=== PATIENT | female | born 2000 | race Caucasian/White ===

== ENCOUNTER 2018-02-16 04:28 | Inpatient (IN) | payer OTHER ==
[2018-02-16] MEDS ORDERED: OXYTOCIN/LR 20 UNIT/1,000 ML BAG IV ONE (05:42)
[2018-02-16] MEDS ORDERED: MEPERIDINE HCL 25 MG/0.5 ML IV PRN (05:45)
[2018-02-16] MEDS ORDERED: PROMETHAZINE 25 MG/ML VIAL IM PRN (05:45)
[2018-02-16] MEDS ORDERED: Ringers Lactate 1,000 ML IV PRN (05:45)
[2018-02-16] MEDS ORDERED: BUTORPHANOL 1 MG/ML INJ IV PRN (05:45)
[2018-02-16] MEDS ORDERED: METHYLERGONOVINE 0.2MG/ML AMP IM PRN (05:45)
[2018-02-16] MEDS ORDERED: CARBOPROST TROME 250 MCG/ML IM PRN (05:45)
[2018-02-16] MEDS ORDERED: Ringers Lactate 1,000 ML IV SCH (06:00)
[2018-02-16] MEDS ORDERED: OXYTOCIN/LR 20 UNIT/1,000 ML BAG IV SCH ×2 (06:00→11:00)
[2018-02-16 06:45] VITALS: BMI 30.9
[2018-02-16 07:22] LABS: RPR Titer ND
[2018-02-16 07:24] LABS: Absolute Lymphocytes (CBC) 1.7 K/uL (0.7-4.9); Absolute Monocytes 1.1 K/uL (0.1-1.3); Absolute Neutrophil 8.4 K/uL (1.8-8.0); Basophils % 0.3 % (0-1.3); Eosinophils % 3.5 % (0-4.4); Hematocrit 33.1 % (36.0-45.0); Lymphocytes % 14.4 % (15.3-44.8); MCH 26.3 pg (27.0-35.0); MCV 81.4 fL (80-100); MPV 9.7 fL (7.6-11.3); Monocytes % 9.5 % (3.3-12.3); RBC Red Blood Cell Count 4.06 M/uL (3.86-4.86)
[2018-02-16] MEDS ORDERED: FENTANYL CITR 100 MCG/2 ML IV ONE (07:34)
[2018-02-16] MEDS ORDERED: ROPIVACAINE HCL 100 ML IV PRN (07:34)
[2018-02-16] MEDS ORDERED: ROPIVACAINE HCL 0.2% 20ML AMP SQ ONE (07:35)
[2018-02-16] MEDS ORDERED: LIDOCAINE 2% INJ, 20 mL 0 ML ONE (10:17)
[2018-02-16] MEDS ORDERED: DIPHENHYDRAMINE 25 MG TAB/CAP PO PRN (10:23)
[2018-02-16] MEDS ORDERED: IBUPROFEN 200 MG TAB PO PRN (10:23)
[2018-02-16] MEDS ORDERED: BISACODYL 10 MG RECTAL SUPP RECT PRN (10:23)
[2018-02-16] MEDS ORDERED: ACETAMINOPHEN 500 MG TAB PO PRN (10:23)
[2018-02-16] MEDS ORDERED: DOCUSATE NA/SENNA CONC 1 TAB PO PRN (10:23)
[2018-02-16] MEDS ORDERED: Oxycodone HCl/Acetaminophen 1 TAB TAB PO PRN ×2 (10:23)
--- NOTE | 2018-02-16 11:01 | PREOPHP ---
Date of Admission: 02/16/2018 A 17-year-old, primigravida, patient of Dr. Roman. Has followed antepartum without apparent complicat ions. Rh negative, immune to Rubella. Negative beta strep screen. Admitted to Labor and Delivery w ith rupture of membranes, 2 cm, irregular contractions. She has been started on Pitocin. Has now pr ogressed to 5 cm, 90% to 100% effaced, 0 station. Baby looks good on the monitor. Admission talk gi fercho. The patient will either get IV analgesics or possibly will get an epidural. Full admission and labor talk given. Anticipate delivery relatively soon. PAUL/BRAYDEN Voice ID: [id number]
[2018-02-16] MEDS ORDERED: Rho(D) IG (HUMAN) 300 MCG SYR IM ONE (11:29)
--- NOTE | 2018-02-16 11:34 | OP ---
Surgeon: Harjit Galindo MD This is a 17-year-old, primigravida, 39 weeks and 2 days. Came in with spontaneous rupture of membra chip, irregular contractions. The patient of Dr. Holland, followed antepartum without complications. Rh negative, immune to Rubella. Negative beta strep screen. Had Stadol 1 mg IV, at 6 cm, requested epidural anesthesia. This was placed and gave good effect during remainder of labor and delivery. S econd stage of approximately 30 to possibly 45 minutes. Spontaneous vaginal delivery of an estimated 7-pound male infant. Nuchal cord very loosely x2, Apgars 9 and 9. Placenta delivered. Schultze in spected and noted to be intact and normal. Less than 300 cc blood loss. Four stitches of 2-0 chromi c just inside the introitus on the patient's left for a first-degree laceration. Final Diagnoses: Term intrauterine 39 weeks 2 days, vaginal delivery, epidural anesthesia. Rh negative. RhoGAM pending. PAUL/BRAYDEN Voice ID: [id number] Report ID: [id number]
[2018-02-16 21:07] LABS: Urine Appearance CLEAR; Urine Bilirubin NEGATIVE (NEG); Urine Blood NEGATIVE (NEG); Urine Color YELLOW; Urine Glucose NEGATIVE (NEG); Urine Protein NEGATIVE (NEG); Urine Urobilinogen 0.2 mg/dL (0.2-1.0); Urine pH 7.5 (5.0-7.0)
[2018-02-16 21:25] LABS: Urine Bacteria <20 /HPF (<20); Urine Culture Reflex Order NOT NEEDED; Urine RBC <5 /HPF (NONE SEEN)
[2018-02-16 21:37] LABS: RPR (Rapid Plasma Reagin) NON-REACT (NON-REACT)
--- NOTE | 2018-02-17 11:56 | P.DS ---
Admission Date: 02/16/18 Discharge Date: 02/17/18 Disposition: ROUTINE DISCHARGE Comment: Rounding with discharge summary Discharge Condition: GOOD Reason for Admission: Labor pains Brief History of Present Illness: Pt was admitted for spontaneous onset of labor and delivered by on-call Dr. Galindo. See operative report for details. Hospital Course: 17 y.o. admitted in spontaneous labor, delivered by on-call physician Dr. Galindo. She had a vaginal delivery. She is infant and is doing well on PPD #1. Lohea is described as normal. Pain is well controlled with motrin. Stable for d/c home today Vital Signs/Physical Exam: Temp Pulse Resp BP Pulse Ox 97.2 F 115 H 20 127/73 02/17/18 08:00 02/17/18 08:00 02/17/18 08:00 02/17/18 08:00 General: Alert, In no apparent distress, Oriented x3 Respiratory: Other (Normal effort) Cardiovascular: Normal pulses Gastrointestinal: Soft and benign, No tenderness, Other (Uterus firm and at the level of umbilicus) Musculoskeletal: No swelling, No erythema, No tenderness Integumentary: No rashes, No breakdown Neurological: Normal speech, Normal strength at 5/5 x4 extr Laboratory Data at Discharge: WBC 11.6 K/uL (4.3-10.9) H 02/16/18 05:25 Hgb 10.7 g/dL (12.0-15.0) L 02/16/18 05:25 Hct 33.1 % (36.0-45.0) L 02/16/18 05:25 Plt Count 294 K/uL (152-406) 02/16/18 05:25 Home Medications: Vit/Iron Fumarate/FA [ Tablet] 1 each PO DAILY 02/16/18 Ibuprofen 800 mg PO Q8H PRN #30 tablet 02/17/18 New Medications: Ibuprofen 800 mg PO Q8H PRN #30 tablet PRN Reason: Abdominal Cramps Patient Discharge Instructions: Complete pelvic rest. Notify doctor of heavy bleeding, pain, fever/chills, or signs of infection Diet: Regular Activity: Ad inder Followup: Roxie Roman MD [ACTIVE - CAN ADMIT] - (Follow up with Dr. Roman in 6 weeks. Call and make apoointment. )
[2018-02-17 12:24] LABS: Hematocrit 29.2 % (36.0-45.0); MCH 26.5 pg (27.0-35.0); MCV 81.5 fL (80-100); MPV 9.2 fL (7.6-11.3); RBC Red Blood Cell Count 3.58 M/uL (3.86-4.86)
[2018-02-17 12:57] VITALS: BP 124/74; TEMP 97.7
[2018-02-19 03:55] LABS: HBsAG Nonreactive (Nonreactive)
== END 2018-02-17 14:15 | disposition home or self-care (01) | DRG 775 ==
LOC: L&D 04:28 → 2ND-WC 04:49
PROVIDERS: ADMIT Obstetrics & Gynecology; ATTEND Obstetrics & Gynecology
PROC: 10E0XZZ Delivery of Products of Conception, External Approach (ICD-10-PCS; principal; 2018-02-16)
PROC: 0HQ9XZZ Repair Perineum Skin, External Approach (ICD-10-PCS; 2018-02-16)
PROC: 3E0234Z Introduction of Serum, Toxoid and Vaccine into Muscle, Percutaneous Approach (ICD-10-PCS; 2018-02-16)
DX: O70.0 First degree perineal laceration during delivery (principal); O69.81X0 Labor and delivery complicated by cord around neck, without compression, not applicable or unspecified; O26.893 Other specified pregnancy related conditions, third trimester; Z3A.39 39 weeks gestation of pregnancy; Z67.31 Type AB blood, Rh negative; Z37.0 Single live birth
CPT/HCPCS: 36415; 81001; 85025; 85027; 85461; 86592; 86850; 86901; 87340; J0595; J2175; J2210; J2590; J2790; J2795; J3010

== ENCOUNTER 2018-08-13 13:19 | Emergency (ER) | payer OTHER ==
[2018-08-13] MEDS ORDERED: NA CHLORIDE 0.9% 1,000 ML ONE (15:27)
[2018-08-13 15:55] LABS: ALT/SGPT 21 U/L (12-78); AST/SGOT 17 U/L (15-37); Albumin 4.2 g/dL (3.4-5.0); Alkaline Phosphatase 103 U/L (45-117); BUN Blood Urea Nitrogen 13 mg/dL (7-18); Bicarbonate 24 mmol/L (21-32); Bilirubin Direct < 0.1 mg/dL (0-0.2); Bilirubin Total 0.2 mg/dL (0.2-1.0); Glucose Level 84 mg/dL (74-106); Lipase 167 U/L (73-393); Protein, Total 8.1 g/dL (6.4-8.2); Sodium Level 142 mmol/L (136-145)
[2018-08-13 16:01] LABS: Absolute Lymphocytes (CBC) 1.6 K/uL (0.7-4.9); Absolute Monocytes 0.5 K/uL (0.1-1.3); Absolute Neutrophil 4.5 K/uL (1.8-8.0); Basophils % 0.8 % (0-1.3); Eosinophils % 5.9 % (0-4.4); Hematocrit 43.9 % (36.0-45.0); Lymphocytes % 22.4 % (15.3-44.8); MPV 8.9 fL (7.6-11.3); Monocytes % 7.3 % (3.3-12.3); RBC Red Blood Cell Count 5.39 M/uL (3.86-4.86)
--- NOTE | 2018-08-13 16:44 | RAD REPORT ---
EXAM DESCRIPTION: CTAbdomen Pelvis W Contrast - 08/13/2018 4:37 pm CLINICAL HISTORY: Abdominal pain. iv only;Abd pain COMPARISON: No comparisons TECHNIQUE: Biphasic CT imaging of the abdomen and pelvis was performed with 100 ml non-ionic IV cont rast. All CT scans are performed using dose optimization technique as appropriate and may include automated exposure control or mA/KV adjustment according to patient size. FINDINGS: The lung bases are clear. The liver, spleen, pancreas, adrenal glands and kidneys are within normal limits. No bowel obstruction, free air, free fluid or abscess. The colon appears thickened particularly the t ransverse and descending colon compatible with colitis. The appendix is normal. No evidence of signi ficant lymphadenopathy. No suspicious bony findings. IMPRESSION: Mild colitis is suspected involving the transverse and descending colon.
--- NOTE | 2018-08-13 17:19 | EDPHYS ---
Physician Documentation [facility] Name: Ajay Cole Age: 18 yrs Sex: Female : 2000 Arrival Date: 08/13/2018 Time: 13:21 Bed 26 Private MD: None, None ED Physician Marixa Robertson HPI: 08/13 16:04 This 18 yrs old Female presents to ER via Ambulatory with complaints of jr8 Abdominal Pain. 16:04 The patient presents with abdominal pain in the lower abdomen. Onset: The jr8 symptoms/episode began/occurred acutely, 1 week(s) ago, and became persistent. The symptoms do not radiate. Associated signs and symptoms: Pertinent positives: diarrhea. The symptoms are described as crampy. Modifying factors: The symptoms are alleviated by nothing, the symptoms are aggravated by food. Severity of pain: At its worst the pain was mild in the emergency department the pain is unchanged. The patient has not experienced similar symptoms in the past. The patient has not recently seen a physician. denies recent antibiotic use or recent travel outside of country . Historical: - Allergies: 13:23 No Known Allergies; sv - PMHx: 13:23 None; sv - PSHx: 13:23 None; sv - Immunization history:: Adult Immunizations up to date. - Social history:: Smoking status: Patient/guardian denies using tobacco. - Ebola Screening: : No symptoms or risks identified at this time. ROS: 16:04 Eyes: Negative for injury, pain, redness, and discharge, ENT: Negative for injury, jr8 pain, and discharge, Neck: Negative for injury, pain, and swelling, Cardiovascular: Negative for chest pain, palpitations, and edema, Respiratory: Negative for shortness of breath, cough, wheezing, and pleuritic chest pain, Back: Negative for injury and pain, MS/Extremity: Negative for injury and deformity, Skin: Negative for injury, rash, and discoloration, Neuro: Negative for headache, weakness, numbness, tingling, and seizure. 16:04 Abdomen/GI: Positive for diarrhea, abdominal cramps, Negative for nausea and vomiting, hematemesis, black/tarry stool, rectal pain, rectal bleeding, bowel incontinence, flatulence. Exam: 16:04 Eyes: Pupils equal round and reactive to light, extra-ocular motions intact. Lids and jr8 lashes normal. Conjunctiva and sclera are non-icteric and not injected. Cornea within normal limits. Periorbital areas with no swelling, redness, or edema. ENT: Nares patent. No nasal discharge, no septal abnormalities noted. Tympanic membranes are normal and external auditory canals are clear. Oropharynx with no redness, swelling, or masses, exudates, or evidence of obstruction, uvula midline. Mucous membranes moist. Neck: Trachea midline, no thyromegaly or masses palpated, and no cervical lymphadenopathy. Supple, full range of motion without nuchal rigidity, or vertebral point tenderness. No Meningismus. Cardiovascular: Regular rate and rhythm with a normal S1 and S2. No gallops, murmurs, or rubs. Normal PMI, no JVD. No pulse deficits. Respiratory: Lungs have equal breath sounds bilaterally, clear to auscultation and percussion. No rales, rhonchi or wheezes noted. No increased work of breathing, no retractions or nasal flaring. Back: No spinal tenderness. No costovertebral tenderness. Full range of motion. Skin: Warm, dry with normal turgor. Normal color with no rashes, no lesions, and no evidence of cellulitis. MS/ Extremity: Pulses equal, no cyanosis. Neurovascular intact. Full, normal range of motion. Neuro: Awake and alert, GCS 15, oriented to person, place, time, and situation. Cranial nerves II-XII grossly intact. Motor strength 5/5 in all extremities. Sensory grossly intact. Cerebellar exam normal. Normal gait. 16:04 Abdomen/GI: Inspection: abdomen appears normal, Bowel sounds: active, all quadrants, Palpation: soft, in all quadrants, mild abdominal tenderness, in the suprapubic area, right lower quadrant and left lower quadrant, mass, is not appreciated, rebound tenderness, is not appreciated, voluntary guarding, is not appreciated, involuntary guarding, is not appreciated, no appreciated organomegaly, Indicators: McBurney's point is not tender, San's sign is negative, Rovsing's sign is negative, Obturator sign is negative, Psoas sign is negative, Liver: tenderness, is not appreciated. Vital Signs: 13:23 BP 124 / 85; Pulse 108; Resp 18; Temp 97.8; Pulse Ox 100% ; Weight 72.57 kg; Height 5 sv ft. 3 in. (160.02 cm); Pain 5/10; 14:20 BP 116 / 65; Pulse 96; Resp 16; Temp 98.4; Pulse Ox 100% ; lt1 15:32 BP 119 / 81; Pulse 98; Resp 17; Pulse Ox 100% on R/A; tw2 16:00 BP 102 / 61; Pulse 95; Resp 18 S; Pulse Ox 97% on R/A; rv 16:39 BP 98 / 61; Pulse 100; Resp 18 S; Pulse Ox 100% on R/A; rv 17:44 BP 104 / 68; Pulse 64; Resp 18; Pulse Ox 100% on R/A; rv 13:23 Body Mass Index 28.34 (72.57 kg, 160.02 cm) sv MDM: 15:02 Patient medically screened. jr8 17:17 Differential diagnosis: diverticulitis, Irritable bowel syndrome, non-specific abd jr8 pain, Ovarian Torsion, Pyelonephritis, Ureterolithiasis, urinary tract infection, colitis. Data reviewed: vital signs, nurses notes, lab test result(s), radiologic studies, CT scan. Data interpreted: Pulse oximetry: on room air is 100 %. Interpretation: normal. Counseling: I had a detailed discussion with the patient and/or guardian regarding: the historical points, exam findings, and any diagnostic results supporting the discharge/admit diagnosis, lab results, radiology results, the need for outpatient follow up, a family practitioner, to return to the emergency department if symptoms worsen or persist or if there are any questions or concerns that arise at home. Response to treatment: the patient's symptoms have markedly improved after treatment. 08/13 15:11 Order name: Basic Metabolic Panel; Complete Time: 16:08/13 15:11 Order name: CBC with Diff; Complete Time: 16:32 08/13 15:11 Order name: Creatinine for Radiology; Complete Time: 16:05 08/13 15:11 Order name: Hepatic Function; Complete Time: 16:08/13 15:11 Order name: Lipase; Complete Time: 16:08/13 16:39 Order name: Urine Dipstick--Ancillary (enter results) bd 08/13 15:11 Order name: IV Saline Lock; Complete Time: 15:26 08/13 15:11 Order name: Labs collected and sent; Complete Time: 15:26 8 08/13 15:11 Order name: Urine Dipstick-Ancillary (obtain specimen); Complete Time: 16:45 8 08/13 16:06 Order name: CT Abd/Pelvis - W/Contrast; Complete Time: 17:15 jr8 08/13 16:39 Order name: Urine --Ancillary (enter results) bd 08/13 15:11 Order name: Urine Test (obtain specimen); Complete Time: 16:44 jr8 Administered Medications: 15:20 Drug: NS 0.9% 1000 ml Route: IV; Rate: 1000 ml; Site: right antecubital; tw2 17:43 Follow up: IV Status: Completed infusion rv 17:43 Drug: Cipro 500 mg Route: PO; rv 17:43 Follow up: Response: Medication administered at discharge. rv 17:43 Drug: Flagyl 500 mg Route: PO; rv 17:43 Follow up: Response: Medication administered at discharge. rv Disposition: 18:40 Co-signature as Attending Physician, Marixa Robertson MD. ma Disposition: 08/13/18 17:18 Discharged to Home. Impression: Colitis, Diarrhea, unspecified. - Condition is Stable. - Discharge Instructions: Diarrhea, Adult. - Prescriptions for Cipro 500 mg Oral Tablet - take 1 tablet by ORAL route every 12 hours for 10 days; 20 tablet. Flagyl 500 mg Oral Tablet - take 1 tablet by ORAL route every 6 hours for 10 days; 40 tablet. promethazine 25 mg Oral Tablet - take 1 tablet by ORAL route every 6 hours As needed; 20 tablet. - Medication Reconciliation Form, Thank You Letter, Antibiotic Education, Prescription Opioid Use, Work release form form. - Follow up: Private Physician; When: 5 - 6 days; Reason: Recheck today's complaints, Continuance of care, Re-evaluation by your physician. - Problem is new. - Symptoms have improved. Signatures: Dispatcher [employer] Elizabeth Chou, RN Ab Carrion PA PA jr8 Mary Anne Riley RN RN tw2 Marixa Robertson MD MD or2 Ike Juarez RN RN rv Corrections: (The following items were deleted from the chart) 17:45 17:18 08/13/2018 17:18 Discharged to Home. Impression: Colitis; Diarrhea, unspecified. rv Condition is Stable. Forms are Medication Reconciliation Form, Thank You Letter, Antibiotic Education, Prescription Opioid Use. Follow up: Private Physician; When: 5 - 6 days; Reason: Recheck today's complaints, Continuance of care, Re-evaluation by your physician. Problem is new. Symptoms have improved. jr8
--- NOTE | 2018-08-13 17:19 | ER ---
Nurse's Notes [facility] Name: Ajay Cole Age: 18 yrs Sex: Female : 2000 Arrival Date: 08/13/2018 Time: 13:21 Bed 26 Private MD: None, None Diagnosis: Colitis;Diarrhea, unspecified Presentation: 08/13 13:22 Presenting complaint: Patient states: diffuse abd pain and diarrhea x 1 week. sv Transition of care: patient was not received from another setting of care. Onset of symptoms was August 06, 2018. Care prior to arrival: None. 13:22 Method Of Arrival: Ambulatory sv 13:22 Acuity: SUKH 3 sv 14:06 Risk Assessment: Do you want to hurt yourself or someone else? Patient reports no tw2 desire to harm self or others. Initial Sepsis Screen: Does the patient meet any 2 criteria? No. Patient's initial sepsis screen is negative. Does the patient have a suspected source of infection? No. Patient's initial sepsis screen is negative. Triage Assessment: 13:24 General: Appears in no apparent distress. uncomfortable, Behavior is calm, cooperative, sv appropriate for age. Pain: Complains of pain in abdomen Pain currently is 5 out of 10 on a pain scale. Neuro: Level of Consciousness is awake, alert, obeys commands, Oriented to person, place, time, situation, Gait is steady. Respiratory: Respiratory effort is even, unlabored, Respiratory pattern is regular, symmetrical. GI: Reports lower abdominal pain, upper abdominal pain, diarrhea. Historical: - Allergies: 13:23 No Known Allergies; sv - PMHx: 13:23 None; sv - PSHx: 13:23 None; sv - Immunization history:: Adult Immunizations up to date. - Social history:: Smoking status: Patient/guardian denies using tobacco. - Ebola Screening: : No symptoms or risks identified at this time. Screenin:07 Abuse screen: Denies threats or abuse. Nutritional screening: No deficits noted. tw2 Tuberculosis screening: No symptoms or risk factors identified. Fall Risk None identified. Assessment: 14:15 General: Appears in no apparent distress. Behavior is calm, cooperative, appropriate tw2 for age. Pain: Complains of pain in abdomen. Neuro: Level of Consciousness is awake, alert, obeys commands, Oriented to person, place, time, situation. Cardiovascular: Heart tones S1 S2 Patient's skin is warm and dry. Respiratory: Airway is patent Respiratory effort is even, unlabored, Respiratory pattern is regular, symmetrical, Breath sounds are clear bilaterally. GI: Reports lower abdominal pain, upper abdominal pain, diarrhea. : No signs and/or symptoms were reported regarding the genitourinary system. EENT: No signs and/or symptoms were reported regarding the EENT system. Derm: No signs and/or symptoms reported regarding the dermatologic system. Musculoskeletal: Range of motion: intact in all extremities. 14:15 GI: Abdomen is flat, Bowel sounds present X 4 quads. Abd is soft X 4 quads Reports. tw2 15:32 Reassessment: Patient appears in no apparent distress at this time. Patient and/or tw2 family updated on plan of care and expected duration. Pain level reassessed. Patient is alert, oriented x 3, equal unlabored respirations, skin warm/dry/pink. Vital Signs: 13:23 BP 124 / 85; Pulse 108; Resp 18; Temp 97.8; Pulse Ox 100% ; Weight 72.57 kg; Height 5 sv ft. 3 in. (160.02 cm); Pain 5/10; 14:20 BP 116 / 65; Pulse 96; Resp 16; Temp 98.4; Pulse Ox 100% ; lt1 15:32 BP 119 / 81; Pulse 98; Resp 17; Pulse Ox 100% on R/A; tw2 16:00 BP 102 / 61; Pulse 95; Resp 18 S; Pulse Ox 97% on R/A; rv 16:39 BP 98 / 61; Pulse 100; Resp 18 S; Pulse Ox 100% on R/A; rv 17:44 BP 104 / 68; Pulse 64; Resp 18; Pulse Ox 100% on R/A; rv 13:23 Body Mass Index 28.34 (72.57 kg, 160.02 cm) sv ED Course: 13:21 Patient arrived in ED. sb2 13:22 None, None is Private Physician. sb2 13:23 Triage completed. sv 13:24 Arm band placed on. sv 14:06 Mary Anne Riley, TYRONE is Primary Nurse. tw2 14:07 Bed in low position. Call light in reach. Pulse ox on. NIBP on. tw2 14:56 Ab Araujo PA is PHCP. jr8 14:56 Marixa Robertson MD is Attending Physician. jr8 16:[address] via wheelchair. sj 16:16 CT Abd/Pelvis - W/Contrast Sent. lt1 16:30 CT completed. Patient tolerated procedure well. Patient moved back from CT. vm2 16:37 CT Abd/Pelvis - W/Contrast In Process Unspecified. EDMS 17:44 No provider procedures requiring assistance completed. IV discontinued, bleeding rv controlled, No redness/swelling at site. Pressure dressing applied. Administered Medications: 15:20 Drug: NS 0.9% 1000 ml Route: IV; Rate: 1000 ml; Site: right antecubital; tw2 17:43 Follow up: IV Status: Completed infusion rv 17:43 Drug: Cipro 500 mg Route: PO; rv 17:43 Follow up: Response: Medication administered at discharge. rv 17:43 Drug: Flagyl 500 mg Route: PO; rv 17:43 Follow up: Response: Medication administered at discharge. rv Outcome: 17:18 Discharge ordered by MD. jr8 17:45 Discharged to home ambulatory. rv 17:45 Condition: good 17:45 Discharge instructions given to patient, Instructed on discharge instructions, follow up and referral plans. medication usage, Demonstrated understanding of instructions, follow-up care, medications, Prescriptions given X 3. 17:45 Patient left the ED. rv Signatures: Dispatcher [employer] EDMS Elizabeth Simmons, RN RN Bhavna Cantor Josh, PA PA jr8 Mary Anne Riley RN RN tw2 Lyssa Knight 2 Tiarra Ash 2 Ike Juarez RN RN rv Lenora Vogt lt1 Corrections: (The following items were deleted from the chart) 13:24 13:23 Resp 18bpm; Pulse Ox 100%; Temp 97.8F; 72.57 kg; Height 5 ft. 3 in.; BMI: 28.3; sv Pain 5/10; sv 15:32 14:15 GI: Abdomen is flat, Bowel sounds present X 4 quads. Abd is soft X 4 quads tw2 tw2
[2018-08-13] MEDS ORDERED: metroNIDAZOLE 500 MG TABLET ONE (17:40)
[2018-08-13] MEDS ORDERED: CIPROFLOXACIN HCL 500 MG TAB ONE (17:41)
[2018-08-13 17:53] VITALS: TEMP 98.4
[2018-08-13 17:57] VITALS: O2SAT 100
[2018-08-13 17:59] VITALS: BP 104/68
[2018-08-13 18:09] LABS: Urine Blood NEGATIVE (NEG); Urine Glucose NEGATIVE (NEG); Urine Protein NEGATIVE (NEG); Urine Specific Gravity 1.025 (1.005-1.030)
== END 2018-08-13 17:45 | disposition home or self-care (01) ==
LOC: ER 13:19
DX: K52.9 Noninfective gastroenteritis and colitis, unspecified (principal); R19.7 Diarrhea, unspecified
CPT/HCPCS: 36415; 74177; 80048; 80076; 81003; 81025; 83690; 85025; J7030; Q9967

== ENCOUNTER 2019-12-30 12:41 | Emergency (ER) | payer OTHER, SELFPAY ==
[2019-12-30 14:45] LABS: Basophils % 0.3 % (0-1.3); Hematocrit 48.1 % (36.0-45.0); Lymphocytes % 11.2 % (15.3-44.8); MPV 8.6 fL (7.6-11.3)
[2019-12-30] MEDS ORDERED: ONDANSETRON 4 MG/2 ML VIAL ONE (14:45)
[2019-12-30] MEDS ORDERED: DICYCLOMINE HCL 10 MG CAP ONE (14:45)
[2019-12-30] MEDS ORDERED: NA CHLORIDE 0.9% 1,000 ML ONE (14:45)
[2019-12-30 14:58] LABS: ALT/SGPT 26 U/L (12-78); AST/SGOT 18 U/L (15-37); Albumin 4.4 g/dL (3.4-5.0); Alkaline Phosphatase 128 U/L (45-117); BUN Blood Urea Nitrogen 8 mg/dL (7-18); Bicarbonate 26 mmol/L (21-32); Bilirubin Direct < 0.1 mg/dL (0-0.2); Bilirubin Total 0.2 mg/dL (0.2-1.0); Glucose Level 109 mg/dL (74-106); Lipase 102 U/L (73-393); Potassium 4.2 mmol/L (3.5-5.1); Protein, Total 8.5 g/dL (6.4-8.2); Sodium Level 138 mmol/L (136-145)
--- NOTE | 2019-12-30 15:56 | RAD REPORT ---
EXAM DESCRIPTION: CT - Abdomen Pelvis W Contrast - 12/30/2019 3:32 pm CLINICAL HISTORY: Abdominal pain COMPARISON: 2019 TECHNIQUE: Computed axial tomography of the abdomen pelvis was obtained. 100 cc Isovue-300 was admin istered intravenously. Oral contrast was not requested which limits evaluation of bowel. All CT scans are performed using dose optimization technique as appropriate and may include automated exposure control or mA/KV adjustment according to patient size. FINDINGS: The liver, spleen, pancreas, adrenal and kidneys appear unremarkable. There is no evidence of diverticulitis. Normal appendix IMPRESSION: No acute abnormality is displayed.
--- NOTE | 2019-12-30 16:22 | ER ---
Nurse's Notes [facility] Name: Ajay Cole Age: 19 yrs Sex: Female : 2000 Arrival Date: 12/30/2019 Time: 12:43 Bed 5 Private MD: Diagnosis: Diarrhea, unspecified;Nausea and vomiting Presentation: 12/29 12:49 Chief complaint: Patient states: abd cramping, N/V/D that began at 0500 this morning. ss Pt states, "I'm pretty sure I have food poisoning.". Coronavirus screen: Proceed with normal triage. Patient denies a cough. Patient denies shortness of breath or difficulty breathing. Patient denies measured and/or subjective temperature greater than 100.4F prior to today's visit. Patient denies travel on a cruise ship or to a country the [facility] currently lists as an affected area. Patient denies contact with known and/or suspected case of COVID-19. Ebola Screen: Patient denies exposure to infectious person. Patient denies travel to an Ebola-affected area in the 21 days before illness onset. Initial Sepsis Screen: Does the patient meet any 2 criteria? HR > 90 bpm. No. Patient's initial sepsis screen is negative. Does the patient have a suspected source of infection? No. Patient's initial sepsis screen is negative. Risk Assessment: Do you want to hurt yourself or someone else? Patient reports no desire to harm self or others. Onset of symptoms was December 30, 2019. 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 - Social history:: Smoking status: Patient denies any tobacco usage or history of. Screenin:15 Abuse screen: Denies threats or abuse. Nutritional screening: No deficits noted. aa5 Tuberculosis screening: No symptoms or risk factors identified. Fall Risk None identified. Assessment: 14:15 General: Appears comfortable, Behavior is calm, cooperative. Pain: Complains of pain in aa5 right lower quadrant and left lower quadrant Pain does not radiate. Pain currently is 8 out of 10 on a pain scale. Quality of pain is described as crampy, Is continuous. Neuro: Level of Consciousness is awake, alert, obeys commands, Oriented to person, place, time, situation. Cardiovascular: Heart tones S1 S2 present Rhythm is regular. Respiratory: Airway is patent Respiratory effort is even, unlabored, Respiratory pattern is regular, symmetrical. GI: Abdomen is round non-distended, Bowel sounds present X 4 quads. Abd is soft and non tender X 4 quads. Reports diarrhea, nausea, vomiting. : Denies burning with urination, inability to void. EENT: No signs and/or symptoms were reported regarding the EENT system. Derm: Skin is pink, warm \\T\\ dry. Musculoskeletal: Range of motion: intact in all extremities. 15:28 Reassessment: test negative, to bedside to administer Bentyl, pt currently in aa5 CT. . 15:40 Reassessment: Patient is alert, oriented x 3, equal unlabored respirations, skin aa5 warm/dry/pink. Patient states feeling better. 16:15 Reassessment: Patient is alert, oriented x 3, equal unlabored respirations, skin aa5 warm/dry/pink. Patient states feeling better. Awaiting disposition. . Vital Signs: 12:49 BP 116 / 92; Pulse 109; Resp 15; Temp 97.3(TE); Pulse Ox 98% on R/A; Weight 81.65 kg; Height 5 ft. 3 in. (160.02 cm); Pain 10/10; 15:30 BP 110 / 72; Pulse 94; Resp 18 S; Pulse Ox 97% on R/A; Pain 2/10; aa5 12:49 Body Mass Index 31.89 (81.65 kg, 160.02 cm) ED Course: 12:43 Patient arrived in ED. ag5 12:51 Triage completed. 12:51 Arm band placed on right wrist. 14:06 Jorge Santamaria PA is PHCP. cp 14:06 Jorge Gregorio MD is Attending Physician. cp 14:15 Patient has correct armband on for positive identification. Placed in gown. Bed in low aa5 position. Call light in reach. Side rails up X2. 14:15 Pulse ox on. NIBP on. aa5 14:18 Sarah Vigil, RN is Primary Nurse. aa5 14:40 Initial lab(s) drawn, by me, sent to lab. Inserted saline lock: 20 gauge in right aa5 antecubital area, using aseptic technique. Blood collected. 15:32 CT Abd/Pelvis - IV Contrast Only In Process Unspecified. EDCT 16:21 Ham Pelletier MD is Referral Physician. cp 16:56 No provider procedures requiring assistance completed. IV discontinued, intact, ss bleeding controlled, No redness/swelling at site. Pressure dressing applied. Administered Medications: 14:40 Drug: Zofran (Ondansetron) 4 mg Route: IVP; Site: right antecubital; aa5 16:55 Follow up: Response: No adverse reaction 14:40 Drug: NS 0.9% 1000 ml Route: IV; Rate: 1 bolus; Site: right antecubital; aa5 15:40 Follow up: IV Status: Completed infusion; IV Intake: 1000ml aa5 15:40 Drug: Bentyl 20 mg Route: PO; aa5 16:55 Follow up: Response: No adverse reaction ss 16:55 Drug: Cipro 500 mg Route: PO; ss 16:55 Follow up: Response: Medication administered at discharge. ss 16:55 Drug: metroNIDAZOLE 500 mg Route: PO; ss 16:55 Follow up: Response: Medication administered at discharge. ss Intake: 15:40 IV: 1000ml; Total: 1000ml. aa5 Outcome: 16:22 Discharge ordered by MD. cp 16:56 Discharged to home ambulatory, with friend. 16:56 Condition: good 16:56 Discharge instructions given to patient, family, Instructed on discharge instructions, follow up and referral plans. medication usage, Demonstrated understanding of instructions, follow-up care, medications, Prescriptions given X 4. 16:57 Patient left the ED. ss Signatures: Dispatcher [employer] [facility] Sarah Vigil RN RN aa5 Brenda De La Fuente RN RN ss Jorge Santamaria, PA PA Reed Toledo ag5
--- NOTE | 2019-12-30 16:23 | EDPHYS ---
Physician Documentation [facility] Name: Ajay Cole Age: 19 yrs Sex: Female : 2000 Arrival Date: 12/30/2019 Time: 12:43 Bed 5 Private MD: ED Physician Jorge Gregorio HPI: 12/29 14:30 This 19 yrs old Female presents to ER via Ambulatory with complaints of cp Abdominal Pain, Nausea/Vomiting. 14:30 The patient presents with abdominal pain. cp 14:30 Onset: The symptoms/episode began/occurred this morning. Associated signs and symptoms: cp Pertinent positives: nausea, vomiting, and diarrhea, blood in stools, Pertinent negatives: constipation, fever, vomiting blood. The symptoms are described as crampy. Patient reports eating out from [employer] yesterday and significant other with mild similar symptoms. 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 - Social history:: Smoking status: Patient denies any tobacco usage or history of. ROS: 14:35 Constitutional: Negative for body aches, chills, fever, poor PO intake. cp 14:35 Eyes: Negative for injury, pain, redness, and discharge. cp 14:35 ENT: Negative for ear pain, sore throat, difficulty swallowing, difficulty handling secretions. 14:35 Cardiovascular: Negative for chest pain. 14:35 Respiratory: Negative for cough, shortness of breath, wheezing. 14:35 Abdomen/GI: Positive for abdominal pain, nausea, vomiting, and diarrhea, abdominal cramps, blood in stool. 14:35 Neuro: Negative for altered mental status, headache, syncope, weakness. 14:35 All other systems are negative. Exam: 14:42 Constitutional: The patient appears in no acute distress, alert, awake, non-toxic, well cp developed, well nourished. 14:42 Head/Face: Normocephalic, atraumatic. cp 14:42 Eyes: Periorbital structures: appear normal, Conjunctiva: normal, no exudate, no injection, Sclera: no appreciated abnormality, Lids and lashes: appear normal, bilaterally. 14:42 ENT: External ear(s): are unremarkable, Nose: is normal, Mouth: Lips: moist, Oral mucosa: pink and intact, moist, Posterior pharynx: is normal, airway is patent, no erythema, no exudate. 14:42 Chest/axilla: Inspection: normal, Palpation: is normal, no crepitus, no tenderness. 14:42 Cardiovascular: Rate: tachycardic, Rhythm: regular. 14:42 Respiratory: the patient does not display signs of respiratory distress, Respirations: normal, no use of accessory muscles, no retractions, labored breathing, is not present, Breath sounds: are clear throughout, no decreased breath sounds. 14:42 Abdomen/GI: Inspection: abdomen appears normal, Bowel sounds: active, all quadrants, Palpation: soft, in all quadrants, mild abdominal tenderness, in the right lower quadrant and left lower quadrant, rebound tenderness, is not appreciated, voluntary guarding, is not appreciated, involuntary guarding, is not appreciated. 14:42 Back: pain, is absent, ROM is normal. Vital Signs: 12:49 BP 116 / 92; Pulse 109; Resp 15; Temp 97.3(TE); Pulse Ox 98% on R/A; Weight 81.65 kg; ss Height 5 ft. 3 in. (160.02 cm); Pain 10/10; 15:30 BP 110 / 72; Pulse 94; Resp 18 S; Pulse Ox 97% on R/A; Pain 2/10; aa5 12:49 Body Mass Index 31.89 (81.65 kg, 160.02 cm) ss MDM: 14:06 Patient medically screened. cp 16:20 Data reviewed: vital signs, nurses notes, lab test result(s), radiologic studies, CT cp scan. 16:20 Counseling: I had a detailed discussion with the patient and/or guardian regarding: the cp historical points, exam findings, and any diagnostic results supporting the discharge/admit diagnosis, lab results, radiology results, to return to the emergency department if symptoms worsen or persist or if there are any questions or concerns that arise at home. Response to treatment: the patient's symptoms have mildly improved after treatment, VSS. Patient appears non-toxic, H/H stable. No bowel movement noted in ED. Will discharge with oral antibiotics. 12/29 14:21 Order name: Basic Metabolic Panel; Complete Time: 15:04 cp 12/29 16:10 Interpretation: Normal except: GLUC 109; GFR 81. cp 12/29 14:21 Order name: CBC with Diff; Complete Time: 16:10 cp 12/29 16:10 Interpretation: Normal except: RBC 5.70; HGB 15.8; HCT 48.1; AMBER% 80.9; LYM% 11.2. cp 12/29 14:21 Order name: Hepatic Function; Complete Time: 15:04 cp 12/29 16:10 Interpretation: Normal except: ALK 128; TP 8.5; GLOB 4.1. cp 12/29 14:21 Order name: Lipase; Complete Time: 15:04 cp 12/29 15:25 Order name: Urine Dipstick--Ancillary (enter results) 12/29 15:25 Order name: Urine --Ancillary (enter results) 12/29 14:21 Order name: IV Saline Lock; Complete Time: 14:37 cp 12/29 14:21 Order name: Labs collected and sent; Complete Time: 14:37 cp 12/29 15:05 Order name: CT Abd/Pelvis - IV Contrast Only; Complete Time: 16:10 cp 12/29 14:21 Order name: Urine Dipstick-Ancillary (obtain specimen); Complete Time: 15:24 cp 12/29 14:21 Order name: Urine Test (obtain specimen); Complete Time: 15:23 cp Administered Medications: 14:40 Drug: Zofran (Ondansetron) 4 mg Route: IVP; Site: right antecubital; aa5 16:55 Follow up: Response: No adverse reaction ss 14:40 Drug: NS 0.9% 1000 ml Route: IV; Rate: 1 bolus; Site: right antecubital; aa5 15:40 Follow up: IV Status: Completed infusion; IV Intake: 1000ml aa5 15:40 Drug: Bentyl 20 mg Route: PO; aa5 16:55 Follow up: Response: No adverse reaction ss 16:55 Drug: Cipro 500 mg Route: PO; ss 16:55 Follow up: Response: Medication administered at discharge. ss 16:55 Drug: metroNIDAZOLE 500 mg Route: PO; ss 16:55 Follow up: Response: Medication administered at discharge. ss Disposition: 12/30 13:26 Co-signature as Attending Physician, Jorge Gregorio MD I agree with the assessment and [facility] of care. Disposition: 12/30/19 16:22 Discharged to Home. Impression: Diarrhea, unspecified, Nausea and vomiting. - Condition is Stable. - Discharge Instructions: Food Choices to Help Relieve Diarrhea, Adult, Diarrhea, Adult, Nausea and Vomiting, Adult. - Prescriptions for Bentyl 20 mg Oral Tablet - take 1 tablet by ORAL route every 6 hours As needed; 20 tablet. Zofran 4 mg Oral Tablet - take 1 tablet by ORAL route every 12 hours As needed; 20 tablet. Cipro 500 mg Oral Tablet - take 1 tablet by ORAL route every 12 hours for 7 days; 14 tablet. Metronidazole 500 mg Oral Tablet - take 1 tablet by ORAL route every 8 hours for 7 days; 21 tablet. - Medication Reconciliation Form, Thank You Letter, Antibiotic Education, Prescription Opioid Use form. - Follow up: Ham Pelletier MD; When: 2 - 3 days; Reason: Worsening of condition. - Problem is new. - Symptoms have improved. Signatures: Dispatcher [employer] [facility] Jorge Gregorio MD MD cha Calderon, Audri, RN RN aa5 Brenda De La Fuente RN RN ss Page, Corey, PA PA cp Corrections: (The following items were deleted from the chart) 12/29 16:22 16:22 12/30/2019 16:22 Discharged to Home. Impression: Diarrhea, unspecified. Condition cp is Stable. Forms are Medication Reconciliation Form, Thank You Letter, Antibiotic Education, Prescription Opioid Use. Follow up: Ham Pelletier; When: 2 - 3 days; Reason: Worsening of condition. Problem is new. Symptoms have improved. cp 16:57 16:22 12/30/2019 16:22 Discharged to Home. Impression: Diarrhea, unspecified; Nausea ss and vomiting. Condition is Stable. Forms are Medication Reconciliation Form, Thank You Letter, Antibiotic Education, Prescription Opioid Use. Follow up: Ham Pelletier; When: 2 - 3 days; Reason: Worsening of condition. Problem is new. Symptoms have improved. cp
[2019-12-30] MEDS ORDERED: CIPROFLOXACIN HCL 500 MG TAB ONE (16:59)
[2019-12-30] MEDS ORDERED: metroNIDAZOLE 500 MG TABLET ONE (16:59)
[2019-12-30 17:03] VITALS: BP 116/92; TEMP 97.3; O2SAT 98
[2019-12-30 17:04] LABS: Urine Blood NEGATIVE (NEG); Urine Glucose NEGATIVE (NEG); Urine Protein NEGATIVE (NEG)
== END 2019-12-30 16:57 | disposition home or self-care (01) ==
LOC: ER 12:41
DX: R19.7 Diarrhea, unspecified (principal)
CPT/HCPCS: 36415; 74177; 80048; 80076; 81003; 81025; 83690; 85025; 96361; 96374; 99284; J2405; J7030; Q9967

== ENCOUNTER 2021-05-31 03:58 | Inpatient (IN) | payer OTHER ==
[~2021-05-31 03:58] MED LIST: BUTORPHANOL 1 MG/ML INJ IV PRN; CARBOPROST TROME 250 MCG/ML IM PRN; METHYLERGONOVINE 0.2MG/ML AMP IM PRN; OXYTOCIN/LR 20 UNIT/1,000 ML BAG IV SCH; PROMETHAZINE INJ 25 MG/ML AMP IM PRN; Ringers Lactate 1,000 ML IV PRN; Ringers Lactate 1,000 ML IV SCH
[2021-05-31 05:30] VITALS: BMI 36.1
[2021-05-31 05:39] LABS: Absolute Lymphocytes (CBC) 1.9 K/uL (0.7-4.9); Basophils % 0.3 % (0-1.3); Hematocrit 34.1 % (36.0-45.0); Lymphocytes % 17.8 % (15.3-44.8); MPV 8.4 fL (7.6-11.3); RBC Red Blood Cell Count 4.29 M/uL (3.86-4.86)
[2021-05-31 05:43] LABS: Urine Appearance Clear (Clear); Urine Bilirubin Negative (Negative); Urine Blood Negative (Negative); Urine Color Yellow (Yellow); Urine Glucose Negative (Negative); Urine Protein Negative (Negative); Urine Urobilinogen 0.2 mg/dL (0.2-1.0); Urine pH 7.5 (5.0-7.0)
[2021-05-31 05:44] LABS: Urine Microscopic Reflex ORDER UMIC
[2021-05-31 05:47] LABS: Urine Bacteria 20-50 /HPF (<20); Urine Mucus 1+ /HPF (NONE SEEN)
[2021-05-31 05:48] LABS: Urine RBC NONE SEEN /HPF (NONE SEEN)
--- NOTE | 2021-05-31 07:39 | PREOPHP ---
Date of Admission: 05/31/2021 History Of Present Illness: Ajay Cole is a 21-year-old, 2, para 1, 39 weeks 2 days, for el ective induction. Pros and cons of this thoroughly discussed prior to admission. The patient is Rh negative. Has received RhoGAM during the . Beta strep negative. COVID negative. Rubella immune. Family History: Noncontributory. Past Medical History: No serious illnesses. Past Surgical History: No surgeries. Allergies: NO ALLERGIES. Medications: No medicines prior to admission other than vitamins and iron. Social History: Does not smoke. Physical Examination: HEENT: Clear. Pupils equal, round, and reactive to light and accommodation. Conjunctivae well perf used. No oral, lingual, or buccal lesions. Chest and Lungs: Clear. Heart: Without murmurs, thrills, heaves, or rubs. Breasts: Not examined this visit today, but negative on previous visits. Abdomen: Term size. Extremities: Clear without edema, cyanosis, or clubbing. Baby is vertex, -1 station, well applied t o the cervix. Assessment And Plan: The patient is 3 cm, 50% effaced. Rupture of membranes, clear fluid. She is c ontracting regularly daily. Anticipate more rapid progress once she gets to 5 cm. Full labor talk given. The patient probably will be requesting epidural when the labor gets more intense. PAUL/BRAYDEN Voice ID: [id number]
[2021-05-31] MEDS ORDERED: ROPIVACAINE HCL 0.2% 20ML AMP IV ONE (08:17)
[2021-05-31] MEDS ORDERED: FENTANYL CITR 100 MCG/2 ML IV ONE (08:17)
[2021-05-31] MEDS ORDERED: 0.2% ROPIVACAINE (200 MG/100 ML) BAG EP ONE (08:17)
[2021-05-31] MEDS ORDERED: LIDOCAINE 1% 20 ML MDV ONE (10:20)
[2021-05-31] MEDS ORDERED: Oxycodone HCl/Acetaminophen 1 TAB TAB PO PRN ×2 (11:03)
[2021-05-31] MEDS ORDERED: DOCUSATE NA/SENNA CONC 1 TAB PO PRN (11:03)
[2021-05-31] MEDS ORDERED: DIPHENHYDRAMINE 25 MG TAB/CAP PO PRN (11:03)
[2021-05-31] MEDS ORDERED: ACETAMINOPHEN 500 MG TAB PO PRN (11:03)
[2021-05-31] MEDS ORDERED: BISACODYL 10 MG RECTAL SUPP PR PRN (11:03)
[2021-05-31] MEDS ORDERED: OXYTOCIN/LR 20 UNIT/1,000 ML BAG IV SCH (12:00)
[2021-05-31] MEDS ORDERED: Rho(D) IG (HUMAN) 300 MCG SYR IM ONE (17:14)
--- NOTE | 2021-05-31 19:51 | OP ---
Surgeon: Harjit Galindo MD Ajay Cole, a 21-year-old, 2, para 1, 39 weeks 2 days, for elective induction. Rupture of m embranes this morning at 3 cm, clear fluid. The patient went to 5 cm rapidly, requested and received epidural anesthesia. Second stage for about 15 minutes or less. Spontaneous vaginal delivery of 6- pound 2-ounce male infant. Apgars 9 and 9. Cord around the shoulders as a harness, but not around t he neck. No episiotomy. No laceration. Schultze delivery of the placenta, which was inspected and noted to be intact and normal less than 300 cc blood loss. The patient tolerated all procedures well . Final Diagnoses: Term intrauterine at 39 weeks 2 days, labor induction, vaginal delivery, epidural anesthesia. The patient is Rh negative. RhoGAM will be pending. Strep negative. LEONARDO esqueda. Rubella immune. PAUL/BRAYDEN Voice ID: [id number] Report ID: [id number]
[2021-05-31] MEDS: IBUPROFEN 200 MG TAB PO PRN (21:14)
--- NOTE | 2021-06-01 10:31 | DS ---
Hospital Course: Ajay Cole is a 21-year-old, 2, para 1, 39 weeks 2 days, delivered a 6-veda nd 2-ounce male infant, Apgars 9 and 9. No episiotomy. No laceration. Epidural anesthesia. Schult ze delivery of the placenta, which was inspected and noted be intact and normal. 300 cc or less bloo d loss. The patient is Rh negative. Baby is Rh positive. The patient has received RhoGAM. She is immune to rubella, negative strep, negative COVID. No post epidural problems other than mild backach e. Ambulating, voiding. Lochia is normal. She will be dismissed later this morning to report back to my office in 6 weeks for followup to report any temperature elevation of 100 degrees or greater, s evere pain, heavy bleeding, or any other type of abnormalities. Flu shot, Tdap, and COVID shots all discussed and suggested. Final Diagnoses: Term intrauterine at 39 weeks 2 days, labor induction, vaginal delivery, epidural anesthesia. RhoGAM administered. Immunizations suggested. PAUL/BRAYDEN Voice ID: [id number] Report ID: [id number]
[2021-06-01] MEDS: IBUPROFEN 200 MG TAB PO PRN (12:11)
[2021-06-01 13:46] VITALS: BP 120/75; TEMP 97.1
[2021-06-01 21:33] LABS: RPR (Rapid Plasma Reagin) NON-REACT (NON-REACT)
[2021-06-02 20:39] LABS: HBsAG Nonreactive (Nonreactive)
== END 2021-06-01 14:40 | disposition home or self-care (01) | DRG 807 ==
LOC: 2ND-WC 03:58
PROVIDERS: ADMIT Specialist; ATTEND Specialist
PROC: 10E0XZZ Delivery of Products of Conception, External Approach (ICD-10-PCS; principal; 2021-05-31)
PROC: 10907ZC Drainage of Amniotic Fluid, Therapeutic from Products of Conception, Via Natural or Artificial Opening (ICD-10-PCS; 2021-05-31)
PROC: 3E0234Z Introduction of Serum, Toxoid and Vaccine into Muscle, Percutaneous Approach (ICD-10-PCS; 2021-05-31)
DX: O26.893 Other specified pregnancy related conditions, third trimester (principal); Z37.0 Single live birth; Z3A.39 39 weeks gestation of pregnancy; Z20.822 Contact with and (suspected) exposure to COVID-19; Z67.31 Type AB blood, Rh negative
CPT/HCPCS: 36415; 81003; 81015; 85025; 85461; 86592; 86850; 86870; 86901; 87086; 87088; 87340; J2210; J2590; J2790; J2795; J3010; J7120; U0003